=== PATIENT | male | born 1975 | race Caucasian/White ===

== ENCOUNTER 2019-10-05 16:59 | Emergency (ER) | payer OTHER ==
[2019-10-05] MEDS ORDERED: Bacitracin 1 PK ONE (18:43)
== END 2019-10-05 18:50 | disposition home or self-care (01) ==
LOC: BURERS 16:59
DX: S71.111A Laceration without foreign body, right thigh, initial encounter (principal); Z89.611 Acquired absence of right leg above knee; W19.XXXA Unspecified fall, initial encounter
CPT/HCPCS: 12002